=== PATIENT | male | born 1995 | race Caucasian/White ===

== ENCOUNTER 2016-05-08 08:58 | Emergency (ER) | payer OTHER ==
[~2016-05-08] VITALS: Ht 180.3 cm; Wt 69.9 kg
[2016-05-08 11:18] VITALS: BP 127/76
== END 2016-05-08 11:19 | disposition home or self-care (01) ==
LOC: EME 08:58
DX: S90.31XA Contusion of right foot, initial encounter (principal); W20.8XXA Other cause of strike by thrown, projected or falling object, initial encounter
CPT/HCPCS: 73630; 99281; 99283